=== PATIENT | male | born 2000 | race Hispanic/Latino ===

== ENCOUNTER 2023-06-20 19:48 | Inpatient (IN) | payer OTHER ==
[~2023-06-20] VITALS: Ht 177.8 cm; Wt 100.0 kg
[2023-06-20] MEDS ORDERED: CLAR5TAB11 PO (20:04)
[2023-06-20] MEDS ORDERED: LORA-930 PO (20:18)
[2023-06-20] MEDS ORDERED: HOME MED LIST COMPLETE! XX SCH (20:20)
[2023-06-20 20:41] LABS: HEMATOCRIT 39.2 % (42.0-52.0); HEMOGLOBIN 13.7 g/dl (13.5-17.5); MEAN CORPUSCULAR HEMOGLOBIN 31.8 pg (27.0-33.0); MEAN CORPUSCULAR HGB CONC 34.9 g/dl (32.0-36.5); PLATELET COUNT, AUTOMATED 178 10^3/uL (150-450); RED BLOOD COUNT 4.31 10^6/uL (4.30-6.10); WHITE BLOOD COUNT 7.7 10^3/uL (4.0-10.0)
[2023-06-20 21:11] LABS: ETHYL ALCOHOL (ETHANOL) 0.007 % (0.000-0.010)
[2023-06-20 21:12] LABS: ACETAMINOPHEN LEVEL < 2.0 UG/ML (10.0-20.0); ALBUMIN 4.5 G/DL (3.2-5.2); ALKALINE PHOSPHATASE 78 U/L (46-116); ALT/SGPT 27 U/L (7.0-40); AST/SGOT 31 U/L (<34); BILIRUBIN,DIRECT 0.1 MG/DL (<0.4); BILIRUBIN,TOTAL 0.5 MG/DL (0.3-1.2); BLOOD UREA NITROGEN 12 MG/DL (9-23); CALCIUM LEVEL 9.4 MG/DL (8.5-10.1); CARBON DIOXIDE LEVEL 27 MMOL/L (20-31); CHLORIDE LEVEL 104 MMOL/L (98-107); CREATININE FOR GFR 0.68 MG/DL (0.70-1.30); GLOMERULAR FILTRATION RATE > 60.0 (>60); GLUCOSE, FASTING 86 MG/DL (60-100); POTASSIUM SERUM 4.1 MMOL/L (3.5-5.1); SALICYLATE LEVEL < 3.0 MG/DL (<30); SODIUM LEVEL 139 MMOL/L (136-145); TOTAL PROTEIN 7.9 G/DL (5.7-8.2)
[2023-06-20 21:15] LABS: THYROID STIMULATING HORMONE 1.662 uIU/ML (0.55-4.78)
[2023-06-20 22:30] LABS: AMPHETAMINES LEVEL URINE NEGATIVE (NEGATIVE); BARBITURATES URINE NEGATIVE (NEGATIVE); BENZODIAZEPINES URINE NEGATIVE (NEGATIVE); CANNABINOIDS URINE NEGATIVE (NEGATIVE); COCAINE METABOLITE URINE NEGATIVE (NEGATIVE); METHADONE URINE NEGATIVE (NEGATIVE); OPIATES URINE NEGATIVE (NEGATIVE); PHENCYCLIDINE URINE NEGATIVE (NEGATIVE)
[2023-06-21] MEDS: LORATADINE 10 MG TAB PO SCH (08:54)
[2023-06-22] MEDS: LORATADINE 10 MG TAB PO SCH (09:15)
[2023-06-22] MEDS ORDERED: MAALOX 30 ML SUSP *UDC PO PRN (16:25)
[2023-06-22] MEDS ORDERED: IBUPROFEN 400MG TAB PO PRN (16:25)
[2023-06-22] MEDS ORDERED: ACETAMINOPHEN TAB 650MG DOSE (2X325MG) PO PRN (16:25)
[2023-06-22] MEDS ORDERED: MOM 30ML SUSPENSION UDC PO PRN (16:25)
[2023-06-22 16:59] VITALS: BP 135/67; TEMP 97.1; O2SAT 99
[2023-06-23 06:08] VITALS: BP 126/62; TEMP 98; O2SAT 97
[2023-06-23] MEDS: LORATADINE 10 MG TAB PO SCH (09:10)
[2023-06-23] MEDS ORDERED: LORazepam 2 MG TAB PO PRN (10:25)
[2023-06-23 10:48] VITALS: BP 125/66
[2023-06-23] MEDS: MULTIVITAMINS/MINERALS THERAP 1 TAB PO SCH (11:09)
[2023-06-23] MEDS: THIAMINE 100 MG TAB PO SCH ×2 (11:09→20:06)
[2023-06-23] MEDS: FOLIC ACID 1MG TAB PO SCH (11:09)
[2023-06-23 14:39] VITALS: BP 145/74
[2023-06-23 18:20] VITALS: BP 148/75; TEMP 97.7; O2SAT 98
[2023-06-23] MEDS: traZODone 50 MG TAB PO PRN (20:06)
[2023-06-23 22:00] VITALS: BP 126/62
[2023-06-24 06:18] VITALS: BP_SYST 128; BP_DIAS 61; BP_DIAS 71; TEMP 97.5; O2SAT 99
[2023-06-24] MEDS: LORATADINE 10 MG TAB PO SCH (08:02)
[2023-06-24] MEDS: FOLIC ACID 1MG TAB PO SCH (08:02)
[2023-06-24] MEDS: MULTIVITAMINS/MINERALS THERAP 1 TAB PO SCH (08:02)
[2023-06-24] MEDS: THIAMINE 100 MG TAB PO SCH ×2 (08:02→21:08)
[2023-06-24] MEDS: SERTRALINE HCL 50 MG TAB PO SCH (09:37)
[2023-06-24 14:32] VITALS: BP 152/82
[2023-06-24 17:46] VITALS: BP 152/82; TEMP 97.6; O2SAT 97
[2023-06-24] MEDS: traZODone 50 MG TAB PO PRN (21:08)
[2023-06-24 23:00] VITALS: BP 152/82
[2023-06-25 06:45] VITALS: BP 122/74; TEMP 97.6; O2SAT 100
[2023-06-25 07:08] VITALS: BP 122/74
[2023-06-25] MEDS: MULTIVITAMINS/MINERALS THERAP 1 TAB PO SCH (08:03)
[2023-06-25] MEDS: LORATADINE 10 MG TAB PO SCH (08:03)
[2023-06-25] MEDS: SERTRALINE HCL 50 MG TAB PO SCH (08:03)
[2023-06-25] MEDS: FOLIC ACID 1MG TAB PO SCH (08:03)
[2023-06-25] MEDS: THIAMINE 100 MG TAB PO SCH ×2 (08:03→20:41)
[2023-06-25 15:00] VITALS: BP 139/81
[2023-06-25 17:57] VITALS: BP 139/81; TEMP 97.1; O2SAT 99
[2023-06-25] MEDS: hydrOXYzine 50 MG TAB PO PRN (20:41)
[2023-06-26 06:54] VITALS: BP 123/84; TEMP 97.5; O2SAT 97
[2023-06-26] MEDS: SERTRALINE HCL 50 MG TAB PO SCH (08:21)
[2023-06-26] MEDS: LORATADINE 10 MG TAB PO SCH (08:21)
[2023-06-26] MEDS: FOLIC ACID 1MG TAB PO SCH (08:21)
[2023-06-26] MEDS: MULTIVITAMINS/MINERALS THERAP 1 TAB PO SCH (08:21)
[2023-06-26 17:23] VITALS: BP 122/70; TEMP 97.3
[2023-06-26] MEDS: diphenhydrAMINE 25MG CAP PO PRN (21:45)
[2023-06-27 06:00] VITALS: BP 123/66; TEMP 97.1; O2SAT 99
[2023-06-27] MEDS: SERTRALINE HCL 50 MG TAB PO SCH (08:33)
[2023-06-27] MEDS: MULTIVITAMINS/MINERALS THERAP 1 TAB PO SCH (08:33)
[2023-06-27] MEDS: LORATADINE 10 MG TAB PO SCH (08:33)
[2023-06-27] MEDS: FOLIC ACID 1MG TAB PO SCH (08:33)
[2023-06-27 17:38] VITALS: BP 145/68; TEMP 97.6; O2SAT 100
[2023-06-27] MEDS: traZODone 50 MG TAB PO PRN (21:43)
[2023-06-28 06:19] VITALS: BP 119/65; TEMP 97.1; O2SAT 98
[2023-06-28] MEDS: MULTIVITAMINS/MINERALS THERAP 1 TAB PO SCH (08:31)
[2023-06-28] MEDS: FOLIC ACID 1MG TAB PO SCH (08:31)
[2023-06-28] MEDS: SERTRALINE HCL 50 MG TAB PO SCH (08:31)
[2023-06-28] MEDS: LORATADINE 10 MG TAB PO SCH (08:31)
[2023-06-28] MEDS: hydrOXYzine 50 MG TAB PO PRN (15:32)
[2023-06-28 18:00] VITALS: BP 132/72; TEMP 98; O2SAT 100
[2023-06-28] MEDS: traZODone 50 MG TAB PO PRN (20:22)
[2023-06-28] MEDS: diphenhydrAMINE 25MG CAP PO PRN (20:22)
[2023-06-29 05:41] VITALS: BP 110/58; TEMP 97.4; O2SAT 99
[2023-06-29] MEDS: LORATADINE 10 MG TAB PO SCH (08:50)
[2023-06-29] MEDS: SERTRALINE HCL 50 MG TAB PO SCH (08:50)
[2023-06-29] MEDS: FOLIC ACID 1MG TAB PO SCH (08:50)
[2023-06-29] MEDS: MULTIVITAMINS/MINERALS THERAP 1 TAB PO SCH (08:50)
[2023-06-29] MEDS: hydrOXYzine 50 MG TAB PO PRN (14:07)
[2023-06-29 18:05] VITALS: BP 140/70; TEMP 98.2; O2SAT 100
[2023-06-29] MEDS: traZODone 50 MG TAB PO PRN (20:35)
[2023-06-30 06:55] VITALS: BP 139/61; TEMP 96.1; O2SAT 100
[2023-06-30] MEDS: SERTRALINE HCL 50 MG TAB PO SCH (08:24)
[2023-06-30] MEDS: FOLIC ACID 1MG TAB PO SCH (08:24)
[2023-06-30] MEDS: MULTIVITAMINS/MINERALS THERAP 1 TAB PO SCH (08:24)
[2023-06-30] MEDS: LORATADINE 10 MG TAB PO SCH (08:25)
[2023-06-30] MEDS ORDERED: SERT50TA29 PO (09:25)
[2023-06-30] MEDS ORDERED: TRAZ-252 PO (09:25)
[2023-06-30] MEDS ORDERED: VITMTA PO (09:25)
[2023-06-30] MEDS ORDERED: CLAR10TA7 PO (09:25)
== END 2023-06-30 09:57 | disposition home or self-care (01) | DRG 885 ==
LOC: M ED 19:48 → M ED INP 06-22 16:23 → M PSY 06-22 16:56
PROVIDERS: ADMIT Student in an Organized Health Care Education/Training Program; ATTEND Student in an Organized Health Care Education/Training Program
DX: F32.1 Major depressive disorder, single episode, moderate (principal); R45.851 Suicidal ideations; F41.1 Generalized anxiety disorder; F10.20 Alcohol dependence, uncomplicated; Z91.52 Personal history of nonsuicidal self-harm; Z20.822 Contact with and (suspected) exposure to COVID-19